=== PATIENT | male | born 1965 | race African-American/Black ===

== ENCOUNTER → 2017-01-03 | Outpatient (CLI) | payer OTHER ==
[~2017-01-03] MED LIST: AMITRIPTYLINE H50 MG PO; METHOCARBAMOL500 MG PO; MOBIC15 MG PO; NEURONTIN300 MG PO
--- NOTE | ~2017-01-03 | CR63 ---
[facility] A Service of [facility] RADIOLOGY TEXT RESULTS PATIENT: ALIN RAMIREZ LOCATION: [facility] : 65 UNIT #: [id number] AGE: [address]: Juan Jose Choe MD SEX: M ORDER DR: [id number] [facility] [address]. [place], [place] [address] [id number] O MR#: [id number] Acc #: [id number] NAME: ALIN RAMIREZ : 1965 SEX: M STUDY DATE/TIME: 01/03/2017 13:41 UNIT: [facility] ROOM: STUDY DESCRIPTION: CR Chest 2 View Attending Physician: Juan Jose Choe M.D. Referring Physician: Juan Jose Choe M.D. Ordering Physician: Juan Jose Choe M.D. Primary Care Physician: Oksana Menon M.D. MEDICAL IMAGING REPORT This report is preliminary unless electronic signature is present EXAM Chest 01/03/2017 HISTORY 51-year-old male, preop clearance revision left total hip and removal of retained hardware. COMPARISON Chest, 04/12/2015. FINDINGS PA and lateral chest views show normal cardiac size and configuration. Hilar structures and mediastinal contours are preserved. Small calcified subcarinal nodes are present. Bilateral lungs are somewhat hyperinflated but clear. Costophrenic angles are preserved. IMPRESSION Generalized pulmonary hyperinflation. No acute chest finding. Dictated by... Hunter Nixon M.D. THIS IS AN ELECTRONICALLY VERIFIED REPORT Hunter Nixon M.D. at 01/04/2017 8:21 AM ALISON/christina TD: 01/03/2017 16:27 JOB #: [id number] MEDICAL IMAGING REPORT Page 1 of 1 COPY
--- NOTE | ~2017-01-03 | EKG ---
PATIENT: ALIN RAMIREZ UNIT #: [id number] Ventricular Rate: 74 BPM Atrial Rate: 74 BPM P-R Interval: 146 ms QRS Duration: 88 ms Q-T Interval: 374 ms QTC Calculation(Bezet): 415 ms P [place]: 56 degrees Calculated R [place]: 55 degrees Calculated T [place]: 57 degrees Diagnosis Line: Normal sinus rhythm Diagnosis Line: Minimal voltage criteria for LVH, may be normal Diagnosis Line: variant Diagnosis Line: Borderline ECG Diagnosis Line: When compared with ECG of 12-APR-2015 09:13, Diagnosis Line: T wave amplitude has increased in Lateral leads Diagnosis Line: Confirmed by JAYSON WHEATLEY MD ([id number]) on 01/03/2017 Diagnosis Line: 7:49:21 PM INTERPRETING MD: CORRY HAMMOND
[2017-01-03 13:41] LABS: HEMATOCRIT 47.1 % (38.0-50.0); HEMOGLOBIN 16.4 gm/dL (13.0-16.0); MEAN CELL VOLUME 98.9 FL (83-96); MEAN CORPUSCULAR HEMOGLOBIN 34.3 PG (28-34); MEAN CORPUSCULAR HGB CONC 34.7 g/dL (30-36); MEAN PLATELET VOLUME 7.3 FL (6.5-11.5); RED BLOOD COUNT 4.77 X10e (3.90-5.60); RED CELL DISTRIBUTION WIDTH 13.4 % (11.0-15.5); WHITE BLOOD COUNT 6.8 X10e3 (4.0-10.5)
[2017-01-03 13:57] LABS: BUN/CREATININE RATIO 21.11; CALCIUM SERUM 9.2 mg/dL (8.4-10.2); CREATININE SERUM 0.9 mg/dL (0.6-1.4); GLOM FILT RATE Estimated 114.2 mL/min (>60); POTASSIUM 4.4 mmol/L (3.5-5.1)
[2017-01-03 16:40] LABS: URINE APPEARANCE CLEAR; URINE BILIRUBIN NEG (NEG); URINE BLOOD NEG (NEG); URINE COLOR YELLOW; URINE GLUCOSE NORM (NORM); URINE KETONE NEG (NEG); URINE LEUKOCYTE ESTERASE NEG (NEG); URINE NITRATE NEG (NEG); URINE PROTEIN NEG (NEG); URINE SPECIFIC GRAVITY 1.015 (1.003-1.035); URINE UROBILINOGEN NORM (NORM)
[2017-01-03 16:41] LABS: URINE SOURCE CLEAN CATCH
[2017-01-03 16:46] LABS: CULTURE INDICATED? NO
== END | disposition home or self-care (01) ==
LOC: CLAB 13:06
PROVIDERS: Orthopaedic Surgery
DX: Z01.818 Encounter for other preprocedural examination (principal); G47.00 Insomnia, unspecified; M54.9 Dorsalgia, unspecified; G89.29 Other chronic pain; R91.8 Other nonspecific abnormal finding of lung field
CPT/HCPCS: 36415; 71020; 80048; 81003; 85027; 93005